=== PATIENT | female | born 1990 | race Caucasian/White ===

== ENCOUNTER 2017-01-23 13:48 | Emergency (ER) | payer BC ==
[~2017-01-23] VITALS: Ht 170.2 cm; Wt 71.7 kg
[2017-01-23 14:07] VITALS: BP_SYST 136
[2017-01-23] MEDS ORDERED: CARISOPRODOL 350 MG TABLET PO ONE (14:30)
[2017-01-23] MEDS ORDERED: IBUPROFEN 600 MG TABLET PO ONE (14:30)
[2017-01-23 14:59] VITALS: BP_SYST 113
== END 2017-01-23 14:59 | disposition home or self-care (01) ==
LOC: SED 13:48
DX: M43.6 Torticollis (principal)
CPT/HCPCS: 72040-TC; 81025; 99284